=== PATIENT | female | born 1985 | race Caucasian/White ===

== ENCOUNTER 2024-10-15 01:27 | Observation (INO) | payer SELFPAY ==
--- NOTE | 2024-10-14 23:00 | ANES.PREANE2 ---
Pre-Anesthetic Assessment Preop Diagnosis: Spontaneous , hemorrhage Operation Date: 10/14/24 12:10 Proposed Procedures p Dilation And Curettage w/ Suction(Not Applicable) - Alessio Patiño MD Was Beta Jada taken within 24 hours: N/A Was Clonidine taken within 24 hours: N/A Social No alcohol and No tobacco Exam alert, oriented x 3, clear to auscultation bilaterally and regular rate & rhythm Airway Submandibular: within normal limits Cervical ROM: within normal limits Mallampati: Class I Dentition: full Anesthetic Plan ASA status: 2E Anesthesia: General Other: Patient presents from [facility] [place] Currently experiencing miscarriage, suspected 12 weeks estimated gestation Patient denies any prior issues with anesthesia Patient had chicken little soup earlier today Denies any cardiac or pulmonary issues Labs reviewed from presenting hospital, most recent hemoglobin 7. 1 unit PRBCs currently running 1 16-gauge IV in the left AC 2 units uncrossed PRBCs available Plan for type and screen with repeat labs Plan for GETA with RSI Data Anesthesia Cardiac Studies: No Data to Display
--- NOTE | 2024-10-14 23:20 | P.HP_ITS ---
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 of Present Illness Gabrielle Avilez is a 39 year old female h/o x four unknown LMP, but thinks she might be 12 weeks transfer from [facility] ER for incomplete spontaneous with continued heavy vaginal bleeding and significant anemia patient was given IV fluids, Cytotec 800 ug, and one unit of PRBCs in the ER at [facility] patient initially refused transfer to [facility] for D&C but finally agreed when she did not stop bleeding and her Hgb dropped from 11 to 7 here in ER patient still having moderate bleeding no c/o pain no dizziness, chest pain, shortness of breath, palpitation Vitals/I&O/Wt Last Vital Signs Temp 97.8 F 10/15/24 00:20 Pulse 88 10/15/24 00:20 Resp 18 10/15/24 00:20 BP 100/57 10/15/24 00:20 Pulse Ox 99 10/15/24 00:20 O2 Del Method Room Air 10/15/24 00:20 10/14/24 10/14/24 10/15/24 14:59 22:59 06:59 Intake Total 0 / 0 Output Total 510 / 510 Balance -510 / -510 Physical Exam Narrative: General comfortable, awake, alert, appropriate Lungs: clear Cor: RRR Abd: soft, nontender Urinary Catheter Management: Straight: Cath Placed During This Visit: no Results Labs OB ([facility]): No Data to Display A&P Assessment and plan (1) Incomplete spontaneous : Approximately 12 weeks gestation Incomplete spontaneous Continued heavy vaginal bleeding with anemia Retained products of conception Recommend suction curettage of uterus Procedure and risks explained to patient Risks include, but not limited to, infection, bleeding, injury to internal organs, anesthesia, Blood transfusions Patient understands and agree to proceed Patient?s wants to keep products of conception. States he does not want POC to be sent to pathology, even if it potentially can affect patient?s treatment plans. Attestations Medical Necessity Statement*: patient with incomplete spontaneous , for suction curettage of uterus Coding Level of Care Code Acute Code for Chg Fwd Diagnoses Incomplete spontaneous O03.4 Time Spent (min) 120
[2024-10-14 23:55] VITALS: BP 91/48; PULSE 110; RESP 18; TEMP 36.6; O2SAT 95
[2024-10-15] VITALS (13 sets, daily range): BP systolic 95–121; BP diastolic 49–74; PULSE 63–108; RESP 15–18; TEMP 36.6–36.8; O2SAT 96–100; BMI 20.8
[2024-10-15] MEDS: carboprost tromethamine 250 mcg/mL Amp IM (00:05)
--- NOTE | 2024-10-15 00:10 | SUR.OPER ---
products of conception given to boiling house hand. Requested by and patient.
[2024-10-15] MEDS: ondansetron 2 mg/ML SDV 2 mL 4 MG IVP (00:19)
--- NOTE | 2024-10-15 00:35 | PC.NURSE ---
pt arrived to floor from PACU at 0035. care handed over from PACU nurse Kristina.
--- NOTE | 2024-10-15 00:45 | PM.OP ---
Operative Report Date of procedure: October 15, 2024 Pre-op diagnosis: incomplete spontaneous anemia Post-op diagnosis: same Post-op findings: uterus sounded to 10 cm products of conception Procedure done: suction curettage of uterus Implants: none Specimens removed/disposition: products of conception, given to patient's ; none sent to pathology per 's wishes Surgeon: Alessio Patiño MD Anesthesia: General Estimated blood loss (mL): 100 Complications: none Findings: uterus sounded to 10 cm products of conception Condition: stable Disposition: PACU Brief History: 39 y.o. at approximately 12 weeks gestation with spontaneous incomplete continued bleeding and anemia Procedure: Informed consent signed The patient was taken to the operating room. General anesthesia was induced. The patient was placed in dorsolithotomy position. The perineum was prepped and draped in the usual fashion. Bladder was drained with a Yan catheter. A bivalve speculum was placed in the vagina. The cervix was noted to be widely dilated with products of conception at the os. POCs were removed. The anterior lip of the cervix was grasped with a sharp-toothed tenaculum. The uterus was sounded to 10 cm. A #10 curved suction curette was used to empty the contents of the uterus. Products of conception were obtained. A sharp curette, followed again by the suction curette, were used to evacuate the uterus. No further bleeding was seen. All instruments were then removed from the uterus, cervix and vagina. No bleeding was seen from the cervix. Methergine 0.2 mg IM was given in the OR. The patient was then placed supine, awakened, and taken to the recovery room. Hemabate 250 ug IM was given in the RR. Postop condition: stable EBL: 100 cc Complications: none Sponge/instruments counts correct x two
[2024-10-15] MEDS: loperamide 2 mg Capsule 4 MG PO (01:35)
--- NOTE | 2024-10-15 04:00 | ANE.PACU2 ---
Inpatient post-anesthesia follow up: Airway intact: Yes Vital signs: Temperature 98 F Pulse Rate 87 Respiratory Rate 15 Blood Pressure 98/52 Pulse Oximetry 97 Oxygen Delivery Me thod Room Air Oxygen Flow Rate Fraction of Inspir ed Oxygen Hydration adequate: Yes Nausea and vomiting: No Pain level: 1 Mental status: Baseline
[2024-10-15 07:11] LABS: Mean Corpuscular HGB Conc 34.1 g/dL (30-55); Mean Corpuscular Hemoglobin 30.6 pg (27-33); Mean Corpuscular Volume 89.7 fl (85-98); Mean Platelet Volume 10.1 fL (7.4-10.4); Platelet Count 173 10^3/cmm (157-399); Red Blood Count 3.01 10^6/uL (3.85-5.65); Red Cell Distribution Width 12.8 % (12.1-15.1); White Blood Count 11.74 10^3/uL (3.29-11.43)
== END 2024-10-15 14:15 | disposition home or self-care (01) ==
LOC: OPS 01:28 → OBGYN 01:36
PROVIDERS: Admitting Provider Obstetrics & Gynecology; Visit Provider Obstetrics & Gynecology
PROC: (CPT 59812; principal; 2024-10-14 12:00)
DX: O03.4 Incomplete spontaneous abortion without complication (principal)
CPT/HCPCS: 59812; 51702; 85027; 86850; 86900; 86920; G0378; J1100; J2405; J2704; J3010

== ENCOUNTER 2025-09-04 11:53 | Emergency (ER) | payer MEDICAID, SELFPAY ==
[2025-09-04 12:24] VITALS: BP 127/81; PULSE 89; RESP 18; TEMP 36.8; O2SAT 99
[2025-09-04 12:41] LABS: Hematocrit 41.2 % (36-47); Hemoglobin 13.70 g/dL (11.27-16.99); Mean Corpuscular HGB Conc 33.3 g/dL (30-55); Mean Corpuscular Hemoglobin 30.2 pg (27-33); Mean Corpuscular Volume 90.7 fl (85-98); Nucleated Red Blood Cells % 0 %; Platelet Count 241 10^3/cmm (157-399); Red Blood Count 4.54 10^6/uL (3.85-5.65); White Blood Count 9.18 10^3/uL (3.29-11.43)
--- NOTE | 2025-09-04 13:28 | US_ITS ---
WS: [id number] EARLY OBSTETRICAL ULTRASOUND (<14 WEEKS). HISTORY: Threatened miscarriage. COMPARISON: None available. Uterus is enlarged and heterogeneous. Uterus is anteverted. Mixed heterogeneity and thickening involving the endometrial canal. Diameter measures up to 2.2 cm. There are a few small pockets of fluid but there is no gestational sac present. Small amount of blood products along the endocervical canal towards the vagina. LEFT ovary contains a corpus luteum measuring 2.6 x 1.7 x 1.4 cm. RIGHT ovary 3.4 x 1.6 x 1.9 cm. No free fluid in the pelvis. US/US OB <=14 wk fetus w transvag IMPRESSION: 1. No intrauterine gestation identified. 2. Thickened heterogeneous products along the endometrial canal consistent wit h incomplete spontaneous . 3. No free fluid.
--- NOTE | 2025-09-04 13:31 | W.ED.PREGNAN ---
HPI - General: Chief complaint: Vaginal Bleeding Stated complaint: 8 Weeks Preg bleeding Time Seen by Provider: 09/04/25 13:24 Source: patient Mode of arrival: ambulatory Limitations: no limitations History of Present Illness: 40-year-old female states that she is currently 8 weeks states she had passed a large clot 2 days ago had some heavy bleeding states that her bleeding is since stopped. She is concerned she may have had a miscarriage she has had 1 previous miscarriage she denies any pain currently denies any fevers denies any worse improving factors. Related Data Allergies Allergy/AdvReac Type Severity Reaction Status Date / Time No Known Allergies Allergy Verified 11/25/24 11:03 [facility] ED PFSH: Medical History (Updated 09/04/25 @ 14:21 by Sonal Hernández MD) Incomplete spontaneous Family History Denies family history of Colon cancer Ovarian cancer Diabetes Heart disease Breast cancer Hypertension Uterine cancer Thyroid disease Stroke Physical Exam Const: COMMON NORMALS: no acute distress, patient oriented x3 and healthy appearing HENMT: COMMON NORMALS: normocephalic and atraumatic HEAD & SCALP: normocephalic and atraumatic Neck/C-Spine: COMMON NORMALS: full ROM and supple Chest: COMMONS NORMALS: normal inspection of the chest Resp: COMMON NORMALS: normal respiratory effort Cardio: COMMON NORMALS: regular rate, regular rhythm and No murmurs present (Cardio) RATE: regular rate RHYTHM: regular rhythm GI: COMMON NORMALS: Normal to inspection, nondistended, normoactive bowel sounds present, Soft to palpation, non-tender and no masses PALPATION: Yes Soft to palpation Extremity: COMMON NORMALS: normal to inspection and full ROM Neuro: COMMON NORMALS: patient oriented x3, moves all extremities and no focal motor deficits Psych: COMMON NORMALS: mental status grossly normal, Normal thought process present and cooperative THOUGHT PROCESS: Normal thought process present Skin: COMMON NORMALS: no rashes or lesions noted and no wounds GENERAL SKIN EXAM: no rashes or lesions noted Course Vital Signs: Vital signs: Vital Signs Temperature 98.2 F 09/04/25 12:24 Pulse Rate 89 09/04/25 12:24 Respiratory Rate 18 09/04/25 12:24 Blood Pressure 123/75 09/04/25 14:14 Pulse Oximetry 100 09/04/25 14:14 Oxygen Delivery Me thod Room Air 09/04/25 14:14 MDM - OB/Uterine Contractions Medical Decision Making Patient presents here with vaginal bleeding in . Differential includes miscarriage, threatened miscarriage, ectopic . Patient's ultrasound here showed no signs of ectopic ultrasound showed no signs of IUP either patient's likely had a miscarriage. She states that she is no longer bleeding at this time she is to follow-up with her OB in 2 to 4 days I informed her she needs to have her quantitative repeated she return to the ER if her bleeding worsens. Lab work including her hemoglobin here is normal I did go over her labs and imaging findings she understands agrees to plan. Medical Records I reviewed the patient's medical records. Lab Data I reviewed the patient's lab results. 09/04/25 12:31 Laboratory Results WBC 9.18 10^3/uL (3.29-11.43) 09/04/25 12:31 RBC 4.54 10^6/uL (3.85-5.65) 09/04/25 12:31 Hgb 13.70 g/dL (11.27-16.99) 09/04/25 12:31 Hct 41.2 % (36-47) 09/04/25 12:31 MCV 90.7 fl (85-98) 09/04/25 12:31 MCH 30.2 pg (27-33) 09/04/25 12:31 MCHC 33.3 g/dL (30-55) 09/04/25 12:31 RDW 12.6 % (12.1-15.1) 09/04/25 12:31 Plt Count 241 10^3/cmm (157-399) 09/04/25 12:31 MPV 9.3 fL (7.4-10.4) 09/04/25 12:31 Neut % (Auto) 69.9 % 09/04/25 12:31 Lymph % (Auto) 22.8 % 09/04/25 12:31 Lanier % (Auto) 4.9 % 09/04/25 12:31 Eos % (Auto) 1.4 % 09/04/25 12:31 Baso % (Auto) 0.7 % 09/04/25 12:31 Neut # (Auto) 6.42 10^3/uL (1.8-7.7) 09/04/25 12:31 Lymph # (Auto) 2.1 10^3/uL (0.8-4.8) 09/04/25 12:31 Lanier # (Auto) 0.5 10^3/uL (0.2-0.9) 09/04/25 12:31 Eos # (Auto) 0.1 10^3/uL (0.0-0.8) 09/04/25 12:31 Baso # (Auto) 0.1 10^3/uL (0.0-0.1) 09/04/25 12:31 Nucleated RBC % (auto) 0 % 09/04/25 12:31 Nucleated RBCs # 0.0 /100WBC 09/04/25 12:31 Ser , Semi-Qnt 09631.00 mIU/mL 09/04/25 12:31 All radiology interpretation(s) finalized by discharge Discharge Plan Discharge Patient Disposition: Home Clinical Impression: Miscarriage Condition: Stable Discharge Orders: Discharge ED (Routine); Ordered 09/04/25 Ordered By: Sonal Hernández Discharge Diet: Advance as tolerated Discharge Activity: Resume usual activity Patient Instructions: Miscarriage (ED) Print Language: Vietnamese Coding Level of Care Code ED 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
[2025-09-04 14:14] VITALS: BP 123/75; O2SAT 100
[2025-09-04 14:25] VITALS: BP 115/72; PULSE 82; RESP 16; O2SAT 100
== END 2025-09-04 14:26 | disposition home or self-care (01) ==
PROVIDERS: Emergency Provider Emergency Medicine
DX: O03.9 Complete or unspecified spontaneous abortion without complication (principal)
CPT/HCPCS: 36415; 76801; 76817; 84702; 85025; 99284

== ENCOUNTER 2025-10-05 13:33 | Emergency (ER) | payer MEDICAID, SELFPAY ==
[2025-10-05 13:56] VITALS: BP 145/74; PULSE 86; RESP 17; TEMP 36.7; O2SAT 97; BMI 24.7
--- OUTSIDE RECORDS SUMMARY | 2025-10-05 14:02 | XMS_ITS | Clinical Summary ---
Author Organization [facility] Address [address] 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 0 Other specified symptom asso ciated with female genital organs 09/26/2007 05/15/2010 Encounters Date Type Department Care Team Description 09/29/2025 External Device Data [facility] Provider, Abstract 09/29/2025 External Device Data [facility] Provider, Abstract 09/29/2025 External Device Data [facility] Provider, Abstract 09/15/2025 External Device Data [facility] Provider, Abstract 09/08/2025 External Device Data [facility] Provider, Abstract 08/18/2025 External Device Data [facility] Provider, Abstract 08/11/2025 External Device Data [facility] Provider, Abstract 08/11/2025 External Device Data [facility] Provider, Abstract 08/11/2025 External Device Data [facility] Provider, Abstract 07/14/2025 External Device Data [facility] Provider, Abstract from Last 3 Months Family History Medical History Relation Name Comments Cancer Maternal Grandmother stomach cancer Relation Name Status Comments Maternal Grandmother Alive Mother Alive Social History Tobacco Use Types Packs/Day Years Used Date Smoking Tobacco: Never Smokeless Tobacco: Never Tobacco Cessation:Counseling Given: Not Answered Alcohol Use Standard Drinks/Week Comments Never 0 (1 standard drink = 0.6 oz pur e alcohol) Feeling Safe Answer Date Recorded Are you in a relationship wi th someone who hurts you emotionally and/or physically? 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 Gender Identity Not on file Sexual Orientation Not on file Last Filed Vital Signs Vital Sign Reading Time Taken Comments Blood Pressure 117/68 10/14/2024 9:50 PM DOUBLE END CHUCKING MACHINE OPERATOR Pulse 93 10/14/2024 9:50 PM DOUBLE END CHUCKING MACHINE OPERATOR Temperature 37.4 C (99.3 F) 10/14/2024 9:31 PM DOUBLE END CHUCKING MACHINE OPERATOR Respiratory Rate 12 10/14/2024 9:50 PM DOUBLE END CHUCKING MACHINE OPERATOR Oxygen Saturation 98% 10/14/2024 9:50 PM DOUBLE END CHUCKING MACHINE OPERATOR Inhaled Oxygen Concentration - - Weight 58.7 kg (129 lb 6.4 oz) 10/14/2024 12:20 PM DOUBLE END CHUCKING MACHINE OPERATOR Height 167.6 cm (5' 6 ) 10/14/2024 12:20 PM DOUBLE END CHUCKING MACHINE OPERATOR Body Mass Index 20.89 10/14/2024 12:20 PM DOUBLE END CHUCKING MACHINE OPERATOR Plan of Treatment Health Maintenance Due Date Last Done Comments DTAP/TDAP/TD VACCINES (1 - Tdap) 2006 HEPATITIS B VACCINES (1 of 3 - 19+ 3-dose series) 04/2006 HPV/Cotest (21-29) 2008 HPV VACCINES (1 - 3-dose SCDM series) 2014 CERVICAL CANCER SCREENING 2017 HPV/Cotest (30-65) 2017 PAP SMEAR 2017 05/13/2010 INFLUENZA VACCINE (#1) 2025 RSV VACCINE (60+ or ) (1 - 1-dose 75+ series) 2062 Insurance [facility] [id number]
--- OUTSIDE RECORDS SUMMARY | 2025-10-05 14:02 | XMS_ITS | Encounter Summary ---
Author Organization [employer] Address 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
--- OUTSIDE RECORDS SUMMARY | 2025-10-05 14:02 | XMS_ITS | Encounter Summary ---
Author Organization [employer] Address 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
--- OUTSIDE RECORDS SUMMARY | 2025-10-05 14:02 | XMS_ITS | Encounter Summary ---
Author Organization [employer] Address 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
--- NOTE | 2025-10-05 14:51 | USR_ITS ---
PROCEDURE INFORMATION: Exam: US Pelvis, Transvaginal, Non-Obstetric Exam date and time: 10/05/2025 3:45 PM Age: 40 years old Clinical indication: Menstruation abnormalities; Excessive menstruation; Additional info: Miscarriage 4 weeks ago, bleeding still present and worse TECHNIQUE: Imaging protocol: Real-time transvaginal pelvic (non-obstetric) ultrasound with image documentation. Transvaginal imaging was used for better evaluation of the endometrium, adnexa, and/or cervix. COMPARISON: US OB <=14 wk fetus w transvag 09/04/2025 1:54 PM FINDINGS: Uterus: Post gravid appearance of the uterus. Heterogeneous contents of the endometrial canal near the fundus measuring approximately 1.7 x 1.2 x 0.9 cm with increased vascularity on Doppler imaging. Small fluid in the endometrial canal. Right ovary/adnexa: Normal. No mass. Normal ovarian blood flow on color Doppler. Left ovary/adnexa: Normal. No mass. Normal ovarian blood flow on color Doppler. Urinary bladder: Urinary bladder is limited. Intraperitoneal space: No free fluid. US/US transvaginal [id number] IMPRESSION: Heterogeneous contents of the endometrial canal near the fundus with vascularity most compatible with retained products of conception.
[2025-10-05 15:00] VITALS: BP 130/74; PULSE 86; O2SAT 98
[2025-10-05 15:08] LABS: Hematocrit 41.8 % (36-47); Hemoglobin 13.80 g/dL (11.27-16.99); Mean Corpuscular HGB Conc 33.0 g/dL (30-55); Mean Corpuscular Hemoglobin 29.7 pg (27-33); Mean Corpuscular Volume 89.9 fl (85-98); Nucleated Red Blood Cells % 0 %; Platelet Count 274 10^3/cmm (157-399); Red Blood Count 4.65 10^6/uL (3.85-5.65); White Blood Count 6.41 10^3/uL (3.29-11.43)
--- NOTE | 2025-10-05 15:16 | ED_ITS ---
HPI - 2 General: Chief complaint: Vaginal Bleeding Stated complaint: vaginal bleeding, had a miscarriage 4 weeks ago Time Seen by Provider: 10/05/25 13:51 Source: patient Mode of arrival: ambulatory Limitations: no limitations History of Present Illness: This patient is a 40-year-old female who presents with ongoing vaginal bleeding for the past 4 weeks following a miscarriage. She was approximately 8 to 12 weeks gestation at the time of the miscarriage, which was reported to have passed spontaneously without intervention. Since that event, she notes that she has not experienced a complete cessation of bleeding; rather, she describes it as progressively increasing in amount over time. She currently is changing pads every 2-4 hours and describes the blood is bright red with intermittent clotting. She denies any associated fever, chills, abdominal pain or cramping, or other systemic symptoms. She reports no follow-up laboratory testing or imaging since her emergency department visit at the time of the miscarriage. Patient expresses interest in discussing voluntary D&C for management of her persistent bleeding, she is unaware of who she was supposed to see for OB follow-up. She is hemodynamically stable at this time, no further symptoms. She does note a past medical history of needing blood transfusion due to blood loss associated with miscarriage. MD Complaint: vaginal bleeding Onset (ago): week(s) Pain Consistency: constant Patient : No Associated symptoms: Deny abdominal pain, dysuria, headache(s), nausea, vaginal discharge or vomiting Related Data Allergies Allergy/AdvReac Type Severity Reaction Status Date / Time No Known Allergies Allergy Verified 11/25/24 11:03 Review of Systems 2 General: Reports: 10 or more systems reviewed and unremarkable except in HPI and below Const: Denies: fever(s), chills, change in appetite, change in weight or diaphoresis ENMT: Denies: throat pain or hoarseness Card: Denies: chest pain, palpitations or lightheadedness Resp: Denies: dyspnea, productive cough or wheezing GI: Denies: abdominal pain, nausea, vomiting, diarrhea, constipation, bloating, change in stool character or hematochezia : Reports: vaginal bleeding; Denies: flank pain, difficulty voiding, dysuria, urinary frequency, urinary urgency, vaginal odor or vaginal discharge Musc: Denies: neck pain or back pain Skin/Breast: Denies: rash or new lesions Neuro: Denies: headache(s) or dizziness [facility] ED 2 PFSH: Medical History Incomplete spontaneous Family History Denies family history of Colon cancer Ovarian cancer Diabetes Heart disease Breast cancer Hypertension Uterine cancer Thyroid disease Stroke Social History Smoking and tobacco/nicotine status: never used tobacco/nicotine Physical Exam 2 Const: COMMON NORMALS: no acute distress, average body habitus, patient oriented x3, no limitations, healthy appearing, alert and well nourished G ENERAL APPEARANCE: cooperative and comfortable ORIENTATION/CONSCIOUSNESS: Yes awake OTHER: Nontoxic-appearing Neck/C-Spine: COMMON NORMALS: full ROM, supple and no meningeal signs Resp: COMMON NORMALS: normal respiratory effort, No retractions, No use of accessory muscles and clear to auscultation bilaterally AUSCULTATION: clear to auscultation bilaterally, no crackles, no rales, no rhonchi and no wheezes Cardio: COMMON NORMALS: regular rate, regular rhythm, No gallops present (Cardio), No clicks present (Cardio), No murmurs present (Cardio) and No rub (Cardio) RATE: regular rate RHYTHM: regular rhythm GI: COMMON NORMALS: Normal to inspection, nondistended, normoactive bowel sounds present, Soft to palpation, non-tender, No hepatosplenomegaly present and no masses AUSCULTATION: Yes normoactive bowel sounds PALPATION: Yes Soft to palpation, No Guarding due to palpation present (GI), No Rigid due to palpation and Yes No hepatosplenomegaly present RECTAL EXAM: deferred : COMMON NORMALS: Yes no CVA tenderness BLADDER/KIDNEY EXAM: Yes no CVA tenderness Back/Pelvis: COMMON NORMALS: no CVA tenderness Extremity: COMMON NORMALS: normal to inspection and full ROM Neuro: COMMON NORMALS: patient oriented x3, moves all extremities, no focal motor deficits and no sensory deficits noted SENSORIUM/ORIENTATION: Yes alert MENINGEAL SIGNS: Yes no meningeal signs Psych: COMMON NORMALS: mental status grossly normal, cooperative and speech normal SPEECH: Yes normal speech Skin: COMMON NORMALS: no rashes or lesions noted GENERAL SKIN EXAM: no rashes or lesions noted Course 2 Vital Signs: Vital signs: Vital Signs Temperature 98.0 F 10/05/25 13:56 Pulse Rate 86 10/05/25 15:00 Respiratory Rate 17 10/05/25 13:56 Blood Pressure 130/74 10/05/25 15:00 Pulse Oximetry 98 10/05/25 15:00 Oxygen Delivery Me thod Room Air 10/05/25 15:00 MDM - OB/Uterine Contractions Medical Decision Making Patient presented for continued vaginal bleeding, overall worsening for the past 4 weeks after being diagnosed with miscarriage here in the emergency department. She had expressed concerns over retained products of conception. Hemodynamically stable, the physical exam unremarkable she had no lower abdominal tenderness. Her hemoglobin is normal, beta-hCG is 25. Ultrasound transvaginal showing heterogenous contents that are most compatible with retained products of conception. For these findings I spoke to on-call DUMP MOTOR OPERATOR, Dr. Patiño, stating to administer IM Methergine and he will call the patient to discuss further plan. However patient stated that she did not want this medication as she wanted to do more research first and also talk to Dr. Patiño himself. However I did tell her if she changes her mind or gets worse to come back immediately for reevaluation. Patient agrees with this, Dr. Patiño comfortable with plan for outpatient follow-up and patient discharged at this time. Lab Data 10/05/25 14:52 10/05/25 14:52 Radiology Impressions Transvaginal US 10/05/25 14:51 IMPRESSION: Heterogeneous contents of the endometrial canal near the fundus with vascularity most compatible with retained products of conception. Laboratory Results WBC 6.41 10^3/uL (3.29-11.43) 10/05/25 14:52 RBC 4.65 10^6/uL (3.85-5.65) 10/05/25 14:52 Hgb 13.80 g/dL (11.27-16.99) 10/05/25 14:52 Hct 41.8 % (36-47) 10/05/25 14:52 MCV 89.9 fl (85-98) 10/05/25 14:52 MCH 29.7 pg (27-33) 10/05/25 14:52 MCHC 33.0 g/dL (30-55) 10/05/25 14:52 RDW 11.9 % (12.1-15.1) L 10/05/25 14:52 Plt Count 274 10^3/cmm (157-399) 10/05/25 14:52 MPV 9.3 fL (7.4-10.4) 10/05/25 14:52 Neut % (Auto) 72.2 % 10/05/25 14:52 Lymph % (Auto) 21.1 % 10/05/25 14:52 Gregg % (Auto) 4.7 % 10/05/25 14:52 Eos % (Auto) 1.1 % 10/05/25 14:52 Baso % (Auto) 0.6 % 10/05/25 14:52 Neut # (Auto) 4.63 10^3/uL (1.8-7.7) 10/05/25 14:52 Lymph # (Auto) 1.4 10^3/uL (0.8-4.8) 10/05/25 14:52 Gregg # (Auto) 0.3 10^3/uL (0.2-0.9) 10/05/25 14:52 Eos # (Auto) 0.1 10^3/uL (0.0-0.8) 10/05/25 14:52 Baso # (Auto) 0.0 10^3/uL (0.0-0.1) 10/05/25 14:52 Nucleated RBC % (auto) 0 % 10/05/25 14:52 Nucleated RBCs # 0.0 /100WBC 10/05/25 14:52 Sodium 138 mmol/L (136-145) 10/05/25 14:52 Potassium 4.7 mmol/L (3.5-5.1) 10/05/25 14:52 Chloride 105 mmol/L (98-107) 10/05/25 14:52 Carbon Dioxide 23 mmol/L (22-29) 10/05/25 14:52 Anion Gap 14.7 (5-19) 10/05/25 14:52 BUN 12 mg/dL (6-20) 10/05/25 14:52 Creatinine 0.6 mg/dL (0.5-0.9) 10/05/25 14:52 GFR Calculation 111.9 mL/min (90-130) 10/05/25 14:52 Glucose 90 mg/dL (65-115) 10/05/25 14:52 Calculated Osmolality 285 mOsm/kg (285-295) 10/05/25 14:52 Calcium 9.2 mg/dL (8.5-10.5) 10/05/25 14:52 Total Bilirubin 0.3 mg/dL (0.15-1.2) 10/05/25 14:52 AST 15 U/L (0-32) 10/05/25 14:52 ALT 15 U/L (0-33) 10/05/25 14:52 Alkaline Phosphatase 55 U/L (35-105) 10/05/25 14:52 Total Protein 7.5 g/dL (6.6-8.7) 10/05/25 14:52 Albumin 4.5 g/dL (3.5-5.2) 10/05/25 14:52 Globulin 3.0 g/dL (1.3-4.6) 10/05/25 14:52 Ser , Semi-Qnt 24.69 mIU/mL 10/05/25 14:52 Blood Type B Positive 10/05/25 15:09 Rho(D) Type Rh positive 10/05/25 15:09 Antibody Screen Negative 10/05/25 15:09 All radiology interpretation(s) finalized by discharge Discharge Plan Discharge Patient Disposition: Home Clinical Impression: Abnormal vaginal bleeding Condition: Stable Discharge Orders: Discharge ED (Routine); Ordered 10/05/25 Ordered By: Phil Luna Patient Instructions: Patient Portal & [facility] Instructions Activity Restrictions/Additional Instructions: Retained Products Discharge You were seen today for persistent vaginal bleeding after a miscarriage. An ultrasound showed retained products of conception (tissue remaining in the uterus). You are currently stable and do not need emergency surgery. You discussed options with the DUMP MOTOR OPERATOR, including expectant management (waiting for the tissue to pass naturally), medication, and surgery. You chose to wait and follow up with your DUMP MOTOR OPERATOR. What to expect: - It is common to have vaginal bleeding for several days or weeks after miscarriage. Bleeding may gradually decrease over time. - Most women in your situation can safely wait for the tissue to pass naturally, as long as there are no signs of infection or heavy bleeding. - Your DUMP MOTOR OPERATOR will contact you tomorrow to discuss further management and answer any questions. When to seek medical attention: - Return to the emergency department or call your doctor immediately if you experience: - Heavy bleeding (soaking more than two pads per hour for two consecutive hours) - Severe abdominal pain not relieved by [id number] pain medication - Fever (temperature over 100.4?F/38?C) - Foul-smelling vaginal discharge - Feeling faint, dizzy, or weak - Any new or worsening symptoms Other options: - If you change your mind and wish to receive medication (such as Methergine injection) to help your uterus contract and pass the tissue, this remains an option. Please contact your DUMP MOTOR OPERATOR or return to the hospital if you wish to pursue this. - Surgical management (dilation and curettage) is reserved for cases with heavy bleeding, infection, or if tissue does not pass after a period of expectant management. Follow-up: - Your DUMP MOTOR OPERATOR will follow up with you tomorrow. Please keep this appointment and discuss any questions or concerns. - If bleeding continues for more than 8 weeks, or if you have ongoing symptoms, further evaluation may be needed. Self-care: - Rest as needed and avoid strenuous activity until bleeding resolves. - Use pads, not tampons, to reduce infection risk. - You may take ibuprofen for pain as needed, following package instructions. - Avoid sexual intercourse until bleeding has stopped and you have been cleared by your DUMP MOTOR OPERATOR. If you have any questions or concerns before your follow-up, do not hesitate to contact your healthcare provider. Print Language: Romanian Coding Level of Care Code ED Sales Support Associate for Isabel Churchill
[2025-10-05 15:37] LABS: Alanine Aminotransferase 15 U/L (0-33); Albumin Level 4.5 g/dL (3.5-5.2); Alkaline Phosphatase 55 U/L (35-105); Anion Gap 14.7 (5-19); Aspartate Amino Transferase 15 U/L (0-32); Blood Urea Nitrogen 12 mg/dL (6-20); Calcium 9.2 mg/dL (8.5-10.5); Carbon Dioxide 23 mmol/L (22-29); Chloride 105 mmol/L (98-107); Globulin 3.0 g/dL (1.3-4.6); Glucose 90 mg/dL (65-115); Osmolality Calculated 285 mOsm/kg (285-295); Potassium 4.7 mmol/L (3.5-5.1); Sodium 138 mmol/L (136-145); Total Protein 7.5 g/dL (6.6-8.7)
== END 2025-10-05 17:00 | disposition home or self-care (01) ==
PROVIDERS: Emergency Medicine; Emergency Provider Physician Assistant
DX: N93.9 Abnormal uterine and vaginal bleeding, unspecified (principal)
CPT/HCPCS: 36415; 76830; 80053; 84702; 85025; 86850; 86900; 99284